=== PATIENT | female | born 1995 | race Caucasian/White ===

== ENCOUNTER 2020-08-01 15:44 | Emergency (ER) | payer SELFPAY ==
[~2020-08-01] VITALS: Ht 170.2 cm; Wt 59.0 kg
[2020-08-01 15:45] VITALS: BP 114/64
== END 2020-08-01 17:35 | disposition home or self-care (01) ==
LOC: ED 16:01
DX: S82.62XA Displaced fracture of lateral malleolus of left fibula, initial encounter for closed fracture (principal); W01.0XXA Fall on same level from slipping, tripping and stumbling without subsequent striking against object, initial encounter; Y93.89 Activity, other specified; Y92.89 Other specified places as the place of occurrence of the external cause; Y99.8 Other external cause status
CPT/HCPCS: 29515; 99283